=== PATIENT | male | born 1980 | race Caucasian/White ===

== ENCOUNTER 2023-09-20 11:36 | Emergency (ER) | payer SELFPAY ==
--- NOTE | 2023-09-20 11:50 | ED.GENADULT ---
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 Reports cutting his finger on a sheet of aluminum while working on his car. Presents with bleeding controlled. He is unsure of last tetanus. Related Data Allergies Allergy/AdvReac Type Severity Reaction Status Date / Time No Known Allergies Allergy Verified 09/20/23 11:52 Review of Systems Review of Systems: Constitutional: No fever, chills, fatigue, night sweats, weight changes ENT/Mouth: No ear pain, hearing loss, nasal congestion, sinus pain, rhinorrhea, sore throat Eyes: No eye pain, swelling, redness, vision changes, discharge Cardio: No chest pain, palpitations, QUACH, orthopnea, peripheral edema Pulm: No SOB, cough, sputum, wheezing, dyspnea, hemoptysis GI: No nausea, vomiting, hematemesis, abdominal pain, diarrhea, constipation, hematochezia, melena : No irregular bleeding, dysuria, frequency, urgency, hesitancy, hematuria, flank pain, urinary flow changes, urinary incontinence or retention MSK: No back pain, neck pain, joint pain, myalgias Skin: No lesions, rashes, +laceration to right 2nd digit Neuro: No weakness, numbness, paresthesias, LOC, dizziness, headache Psych: No anxiety/panic, depression, SI/HI, AH/VH All other systems reviewed and are negative. [facility] Past Medical History Attestation statement: The following information was validated with the patient. Source: old records reviewed and nursing notes reviewed Social History Social History Advance Directives: No Advance Directives Information Provided: No Physical Exam ED Vital Signs: Vital Signs - 24 hr 09/20/23 11:51 09/20/23 15:31 09/20/23 16:09 Temperature 98 F 97.9 F 97.5 F Pulse Rate 73 60 65 Respiratory Rate 18 16 16 Blood Pressure 132/75 127/83 122/67 Pulse Oximetry 98 100 100 Oxygen Delivery Method Room Air Room Air Room Air BMI result Body Mass Index 23.7 Vital signs stable Const General: cooperative, healthy appearing, comfortable and no acute distress Orientation/consciousness: patient oriented x3 Limitations: no limitations Resp Effort & Inspection: normal respiratory effort and able to speak in complete sentences Cardio Rate: regular rate Rhythm: regular rhythm Skin Other: + see below Neuro Other: Strength 5/5 intact throughout. Sensation intact to light touch.? Neurovascular intact distally.? General: patient oriented x3 Extrem Other: + 2 cm linear superficial laceration noted to the finger pad of the right 2nd digit. Bleeding controlled. No surrounding erythema. No obvious foreign body. Slightly tender to palpation. No involvement of the nail bed. No subungual hematoma. Neurovascularly intact distally. 2+ radial/ulnar pulse intact. Full ROM noted to DIP, PIP and MCP of right 2nd digit. Course Course Course Narrative: This is a rapid medical exam performed by Devika Mack NP: Additional HPI, ROS, PE not included below will be deferred to primary provider. Patient is a 43-year-old right hand dominant male presenting to the ED with complaint of laceration to left index finger. Cut on sheet of aluminum at home. Bleeding controlled. Unsure last Tdap. Reports vasovagal syncope with prior lacerations. Plan: Tdap, repair Reevaluation(s) Reevaluation #1: 1600-- laceration repaired with 4 sutures. Bleeding controlled. Patient tolerated procedure well. Tetanus updated. Advised to return in 7-10 days for suture removal. Patient has remained stable throughout ED visit today. Discussed worrisome signs and symptoms and when to return to the ED. All questions answered at this time. Patient is agreeable with disposition and stable for discharge. Medications Administered Discontinued Medications Generic Name Dose Route Start Last Admin Trade Name Freq PRN Reason Stop Dose Admin Diphtheria/Tetanus/Acell Pertussis 0.5 ml 09/20/23 11:52 09/20/23 14:21 Diphth,Pertus(Acell),Tet Adult 0.5 Ml Syringe IM 09/20/23 11:53 0.5 ml .ONCE ONE Administration Lidocaine HCl 5 ml 09/20/23 13:52 09/20/23 14:23 Lidocaine Hcl 1 % Mpf 5 Ml Vial INFILTRATI 09/20/23 13:53 5 ml ONCE ONE Administration Procedures Laceration Laceration 1: Site: hand Side (If applicable): right Size (cm): 2 Description: linear Depth: simple, single layer Local Anesthetic: lidocaine 1% Amount of anesthesia used (mL): 5 Pre-repair: wound explored, irrigated extensively, deep structures intact and extensive debridement Skin layer closed with: nylon Size (cm): 3-0 Number of sutures: 4 Technique: simple, interrupted Medical Decision Making Medical Decision Making MDM Narrative: 43 year old male with no significant pmhx presents to the ED today for evaluation of 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 Vital signs stable. He is nontoxic-appearing and in no acute distress. On exam, there is a 2 cm linear superficial laceration noted to the finger pad of the right 2nd digit. Bleeding controlled. No surrounding erythema. No obvious foreign body. Slightly tender to palpation. No involvement of the nail bed. No subungual hematoma. Neurovascularly intact distally. 2+ radial/ulnar pulse intact. Full ROM noted to DIP, PIP and MCP of right 2nd digit. Differential diagnosis includes laceration, abrasion. Unlikely retained foreign body, fracture. Plan for laceration repair, tetanus update and re-evaluation. Differential Diagnosis Differential Diagnoses: The differential diagnosis associated with the presentation includes As above Admission/Observation Not indicated Social Determinants Patient?s care significantly limited by Social Determinants of Health including: Other Social Determinant of Health Critical Care Time Critical Care Time Critical Care Time: No Discharge Plan Discharge Clinical Impression: Laceration Patient Disposition: Home, Self-Care Instructions: Laceration (ED), Stitches Removal (ED) Additional Instructions: You were evaluated in the ED today for laceration to your right pointer finger. This laceration was repaired with 4 sutures. Keep this area clean and dry for the next 24 hours. Then you may wash with mild soap and water. You may apply bacitracin or Neosporin to the area as needed. Your tetanus was updated today. Return in 7-10 days for suture removal. Return with new or worsening symptoms. In the case of an emergency call 911. Interventions: ED Discharge Assessment Last Done: 09/20/23 16:09 Discharge Date/Time: 09/20/23 16:10 Print Language: Wolof
[2023-09-20 11:51] VITALS: BP 132/75; PULSE 73; RESP 18; TEMP 36.6; O2SAT 98; BMI 23.7
[2023-09-20] MEDS: Diphth,Pertus(ACell),Tet Adult 0.5 ML SYRINGE IM (14:21)
[2023-09-20] MEDS: Lidocaine HCl 1 % MPF 5 ML VIAL INFILTRATI (14:23)
[2023-09-20 15:31] VITALS: BP 127/83; PULSE 60; RESP 16; TEMP 36.6; O2SAT 100
[2023-09-20 16:09] VITALS: BP 122/67; PULSE 65; RESP 16; TEMP 36.4; O2SAT 100
== END 2023-09-20 16:10 | disposition home or self-care (01) ==
PROVIDERS: Emergency Provider Emergency Medicine
DX: S61.210A Laceration without foreign body of right index finger without damage to nail, initial encounter (principal); W26.8XXA Contact with other sharp object(s), not elsewhere classified, initial encounter; Y93.89 Activity, other specified; Y92.9 Unspecified place or not applicable; Y99.9 Unspecified external cause status; Z23 Encounter for immunization
CPT/HCPCS: 12001; 90471; 90715; 99282; 99284